=== PATIENT | male | born 1960 | race Caucasian/White ===

== ENCOUNTER 2025-05-17 12:25 | Emergency (ER) | payer MEDICAID ==
[~2025-05-17] VITALS: Ht 175.3 cm; Wt 102.0 kg
[2025-05-17 12:31] VITALS: BP 144/80; TEMP 36.9; O2SAT 100
[2025-05-17 12:43] VITALS: PULSE 96; RESP 18; O2SAT 99
[2025-05-17] MEDS ORDERED: CYCL10TA21 MT (15:54)
[2025-05-17] MEDS ORDERED: LIDO700A30 TP (15:54)
[2025-05-17] MEDS: CYCLOBENZAPRINE 10MG TABLET PO ONE (16:06)
== END 2025-05-17 16:23 | disposition home or self-care (01) ==
LOC: ER 12:25
DX: S33.5XXA Sprain of ligaments of lumbar spine, initial encounter (principal); I10 Essential (primary) hypertension; M54.16 Radiculopathy, lumbar region; Z94.0 Kidney transplant status; Y93.89 Activity, other specified; Y92.89 Other specified places as the place of occurrence of the external cause; Y99.8 Other external cause status
CPT/HCPCS: 99283